=== PATIENT | male | born 1995 | race African-American/Black ===

== ENCOUNTER 2021-02-06 03:14 | Emergency (ER) | payer OTHER ==
[2021-02-06] MEDS ORDERED: MORPHINE SULFATE 2 MG/ML INJ. IVP ONE (04:15)
[2021-02-06] MEDS ORDERED: MORPHINE SULFATE 4 MG/ML INJ. ONE (04:22)
[2021-02-06 08:29] LABS: ALBUMIN 3.9 g/dL (3.4-5.0); CALCIUM 9.1 mg/dL (8.5-10.1); CREATININE 1.1 mg/dL (0.7-1.3); GFR 97.9; POTASSIUM 3.7 mmol/L (3.5-5.1); TOTAL BILIRUBIN 0.8 mg/dL (0.2-1.0)
--- NOTE | 2021-02-06 08:42 | RAD ---
4 view mandibular series Clinical indications: Jaw pain. FINDINGS: There is a fracture through the ramus of the right side of the mandible extending through t he angle of the mandible. There is mild medial displacement of the anterior portion of the right side of the mandible by 4 mm. There is a nondisplaced fracture involving the angle of the mandible on the left side. No displacement of teeth is seen. No temporomandibular joint dislocation is seen. No lyti c process is seen. IMPRESSION: Bilateral mandibular fractures. Electronically signed by: Olman Burks MD (02/06/2021 8:40 AM) [id number]
--- NOTE | 2021-02-06 08:49 | RAD ---
EXAM: Head and maxillofacial bone CT without contrast. HISTORY: Mandibular fracture. TECHNIQUE: Computed tomographic images of the head and maxillofacial bones were obtained without cont rast. *One or more of the following individualized dose reduction techniques were utilized for this examina tion: 1. Automated exposure control. 2. Adjustment of the mA and/or kV according to patient size. 3. Use of iterative reconstruction technique. COMPARISON: None. FINDINGS: There is no acute or subacute extra-axial or intraparenchymal hemorrhage. There is no mass effect or midline shift. There is no hydrocephalus. The mancilla-white matter differentiation pattern is intact. No calvarial lesion is seen. The orbits are unremarkable. The mastoid air cells are clear. There are displaced fractures traversing the posterior mandibular body bilaterally. The left mandibul ar body fracture line traverses between the roots of the posterior mandibular molars and the right ma ndibular body fracture line traverses through the root of an unerupted posterior mandibular molar. Th ere are incidental unerupted bilateral maxillary molars. No periapical abscess is seen. There is soft tissue gas surrounding the left mandible. The nasal septum is midline. There is a small right cara bullosa. There is attenuation of the left ostiomeatal unit. The temporomandibular joints are intact. There is no acute finding involving the pr oximal cervical spine. IMPRESSION: 1. Displaced fractures of the bilateral mandibular body, with fracture line extension between the hardik ts of posterior mandibular molars. The temporomandibular joints are intact. 2. No acute intracranial finding. Electronically signed by: Fallon López MD (02/06/2021 8:46 AM) [id number]
[2021-02-06 09:11] LABS: BASO # 0.1 x10^3/uL (0.0-0.2); BASO % 1 % (0-3); EOS # 0.1 x10^3/uL (0.0-0.7); EOS % 1 % (0-3); HEMATOCRIT 38.3 % (39.0-53.0); HEMOGLOBIN 12.3 g/dL (13.0-17.5); LYMPH # 2.5 x10^3/uL (1.0-4.8); LYMPH % 18 % (24-48); MEAN CORPUSCULAR HEMOGLOBIN 21 pg (25-35); MEAN CORPUSCULAR HGB CONC 32 g/dL (31-37); MEAN CORPUSCULAR VOLUME 66 fL (79-100); MONO # 1.2 x10^3/uL (0.0-1.1); MONO % 9 % (0-9); NEUT # 9.7 x10^3/uL (1.8-7.7); NEUT % 72 % (31-73); PLATELET COUNT 281 x10^3/uL (140-400); RED BLOOD COUNT 5.79 x10^6/uL (4.30-5.70); RED CELL DISTRIBUTION WIDTH 16.7 % (11.5-14.5); WHITE BLOOD COUNT 13.5 x10^3/uL (4.0-11.0)
[2021-02-06 11:03] LABS: ANISOCYTOSIS SLIGHT; MICROCYTOSIS PRESENT; PLT ESTIMATE ADEQUATE (ADEQUATE)
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
== END 2021-02-06 09:25 | disposition short-term general hospital (02) ==
LOC: ER 03:14 → EEVIPCON 03:14 → ER 09:25
DX: S02.609A Fracture of mandible, unspecified, initial encounter for closed fracture (principal); Z20.822 Contact with and (suspected) exposure to COVID-19; R51.9 Headache, unspecified; Y08.89XA Assault by other specified means, initial encounter; Y93.89 Activity, other specified; Y92.89 Other specified places as the place of occurrence of the external cause; Y99.8 Other external cause status
CPT/HCPCS: 36415; 70110; 70450; 70486; 80053; 85025; 87426; 99285; U0003; U0005